=== PATIENT | male | born 1955 | race Caucasian/White ===

== ENCOUNTER 2022-01-09 01:39 | Observation (INO) | payer BC ==
[2022-01-09 02:13] LABS: Hemoglobin 12.9 g/dL (13.5-17.5); Mean Corpuscular HGB CONC 35.6 g/dL (32.0-36.0); Mean Corpuscular Volume 98.1 fl (81.2-95.1); Mean Platelet Volume 9.5 fl (7.4-10.4); Platelet Count 193 10x3/uL (150-450); RBC Distribution Width 12.3 % (11.5-14.5); Red Blood Cell (RBC) Count 3.69 10x6/uL (4.32-5.72); White Blood Cell (WBC) Count 8.4 10x3/uL (3.5-10.5)
[2022-01-09 02:27] LABS: ALT (SGPT) 97 U/L (8-55); AST (SGOT) 58 U/L (5-34); Albumin 3.9 g/dL (3.4-4.8); Alkaline Phosphatase 92 U/L (40-110); Anion Gap 11 mmol/L (10-20); BUN (Urea Nitrogen) 17 mg/dL (8.4-25.7); Bilirubin, Total 1.3 mg/dL (0.2-1.2); Calc. Creatinine Clearance 0 mL/min (70-130); Calcium 9.7 mg/dL (7.8-10.44); Carbon Dioxide 29 mmol/L (23-31); Chloride 97 mmol/L (98-107); Estimated GFR 97; Globulin 2.2 g/dL (2.4-3.5); Glucose 230 mg/dL (80-115); MDiff Complete? YES; Magnesium 1.8 mg/dL (1.6-2.6); Potassium 4.2 mmol/L (3.5-5.1); Protein, Total 6.1 g/dL (5.8-8.1); Sodium 133 mmol/L (136-145)
[2022-01-09 02:52] LABS: Band 3 % (5-11); Eosinophils 2 % (0-10); Lymphocytes 8 % (21-51); Monocytes 11 % (0-10); Neutrophil 76 % (42-75)
[2022-01-09 02:55] LABS: Platelet Morphology Comment Appears Adequate
[2022-01-09] MEDS ORDERED: Senokot S 8.6-50 MG TAB PO PRN (05:52)
[2022-01-09] MEDS ORDERED: Calcium Carbonate 500 MG ChewTAB PO PRN (05:52)
[2022-01-09] MEDS ORDERED: Zolpidem Tartrate 5 MG TAB PO PRN (05:52)
[2022-01-09] MEDS ORDERED: Ondansetron PF 4 MG/2 ML Vial IVP PRN (05:52)
[2022-01-09] MEDS ORDERED: Guaifenesin DM 100-10/5 ML UDCUP PO PRN (05:52)
[2022-01-09] MEDS ORDERED: Sodium Chloride 0.9% 1,000 ML IV SCH (06:00)
[2022-01-09] MEDS ORDERED: Magnesium Sulfate/D5W 1 GM/100 ML BAG IVPB SCH (06:15)
[2022-01-09 06:32] LABS: CK (CPK) 68 U/L (30-200); Phosphorus 3.9 mg/dL (2.3-4.7)
[2022-01-09 06:54] LABS: ALT (SGPT) 93 U/L (8-55); AST (SGOT) 64 U/L (5-34); Albumin 3.4 g/dL (3.4-4.8); Alkaline Phosphatase 71 U/L (40-110); Anion Gap 11 mmol/L (10-20); BUN (Urea Nitrogen) 18 mg/dL (8.4-25.7); Bilirubin, Total 1.3 mg/dL (0.2-1.2); Calc. Creatinine Clearance 0 mL/min (70-130); Calcium 8.6 mg/dL (7.8-10.44); Carbon Dioxide 26 mmol/L (23-31); Chloride 102 mmol/L (98-107); Estimated GFR 103; Globulin 1.9 g/dL (2.4-3.5); Glucose 102 mg/dL (80-115); Potassium 4.3 mmol/L (3.5-5.1); Protein, Total 5.3 g/dL (5.8-8.1); Sodium 135 mmol/L (136-145)
[2022-01-09 07:01] VITALS: BMI 21.7
[2022-01-09] MEDS: Thiamine 100 MG TAB PO SCH (07:59)
[2022-01-09] MEDS: Multivitamin W/ Minerals 1 TAB PO SCH (08:00)
[2022-01-09] MEDS: Folic Acid 1 MG TAB PO SCH (08:00)
[2022-01-09 11:19] LABS: Hemoglobin A1c 5.1 % (4.0-6.0)
[2022-01-09] MEDS: Acetaminophen 325 MG TAB PO PRN ×2 (11:35→17:57)
[2022-01-09 12:15] LABS: Bilirubin Neg (Negative); Blood, Urine Negative (Negative); Clarity Clear (Clear); Glucose, Urine (Dipstick) 100 mg/dL (Negative); Ketone, Urine Negative (Negative); Leukocyte Negative (Negative); Nitrite Negative (Negative); Protein, Urine (Dipstick) Negative (Neg-Trace); Urobilinogen Normal mg/dL (Less than 2)
[2022-01-09 13:01] LABS: RBC/HPF None Seen HPF (0-3); WBC/HPF 0-3 HPF (0-3)
[2022-01-09 13:02] LABS: Bacteria/HPF None Seen HPF (None Seen); Squamous Epithelial None Seen HPF (0-3)
[2022-01-09] MEDS ORDERED: Baclofen 10 MG TAB PO PRN (20:46)
[2022-01-09] MEDS ORDERED: cloNIDine 0.1 MG TAB PO PRN (20:46)
[2022-01-09] MEDS ORDERED: traZODone HCl 50 MG TAB PO SCH (21:00)
[2022-01-09] MEDS: traZODone HCl 50 MG TAB PO PRN (22:00)
[2022-01-09] MEDS: traMADol HCl 50 MG TAB PO PRN (22:01)
[2022-01-09] MEDS: Gabapentin 300 MG CAP PO PRN (22:01)
[2022-01-09] MEDS: Melatonin 3 MG TAB PO PRN (22:02)
[2022-01-09] MEDS: Mupirocin 2% Ointment 22 GM Tube TOP SCH (23:01)
[2022-01-09] MEDS: predniSONE 10 MG TAB PO SCH (23:04)
[2022-01-09] MEDS: Sodium Chloride 0.9% 1,000 ML IV SCH (23:04)
[2022-01-09] MEDS: hydrOXYzine Pamoate 25 mg Capsule PO SCH (23:07)
[2022-01-10 05:13] LABS: Hemoglobin 10.5 g/dL (13.5-17.5); Mean Corpuscular HGB CONC 34.4 g/dL (32.0-36.0); Mean Corpuscular Hemoglobin 34.5 pg (27.0-33.0); Mean Corpuscular Volume 100.3 fl (81.2-95.1); Mean Platelet Volume 9.7 fl (7.4-10.4); Platelet Count 183 10x3/uL (150-450); RBC Distribution Width 12.6 % (11.5-14.5); Red Blood Cell (RBC) Count 3.04 10x6/uL (4.32-5.72)
[2022-01-10 05:30] LABS: Anion Gap 9 mmol/L (10-20); BUN (Urea Nitrogen) 9 mg/dL (8.4-25.7); Calc. Creatinine Clearance 116 mL/min (70-130); Calcium 8.5 mg/dL (7.8-10.44); Carbon Dioxide 26 mmol/L (23-31); Chloride 106 mmol/L (98-107); Estimated GFR 109; Glucose 114 mg/dL (80-115); Potassium 3.4 mmol/L (3.5-5.1); Sodium 138 mmol/L (136-145)
[2022-01-10] MEDS: hydrOXYzine Pamoate 25 mg Capsule PO SCH ×4 (06:10→22:56)
[2022-01-10 06:19] LABS: MDiff Complete? YES; Platelet Morphology Comment Appears Adequate
[2022-01-10 06:25] LABS: Band 1 % (5-11); Lymphocytes 7 % (21-51); Monocytes 17 % (0-10); Neutrophil 72 % (42-75); Reactive Lymphocytes 2 % (0-10)
[2022-01-10] MEDS ORDERED: Potassium Chloride 20 MEQ TAB PO SCH (07:30)
[2022-01-10] MEDS: DULoxetine 30 MG CAP PO SCH (08:32)
[2022-01-10] MEDS: Gabapentin 300 MG CAP PO PRN ×2 (08:35→17:09)
[2022-01-10] MEDS: Thiamine 100 MG TAB PO SCH (08:35)
[2022-01-10] MEDS: Multivitamin W/ Minerals 1 TAB PO SCH (08:35)
[2022-01-10] MEDS: LACTINEX 1 TAB PO SCH (08:36)
[2022-01-10] MEDS: Folic Acid 1 MG TAB PO SCH (08:36)
[2022-01-10] MEDS: Tamsulosin HCl 0.4 MG CAP PO SCH (08:36)
[2022-01-10] MEDS: Acyclovir 400 mg Tablet PO SCH (08:37)
[2022-01-10] MEDS: predniSONE 10 MG TAB PO SCH ×2 (08:37→21:51)
[2022-01-10] MEDS: cloNIDine 0.1 MG TAB PO SCH ×2 (08:41→21:50)
[2022-01-10] MEDS: Mupirocin 2% Ointment 22 GM Tube TOP SCH ×2 (08:52→21:52)
[2022-01-10] MEDS: traMADol HCl 50 MG TAB PO PRN ×3 (08:52→22:11)
[2022-01-10] MEDS ORDERED: NALOXONE HCL SL SCH (09:00)
[2022-01-10] MEDS ORDERED: BUPRENORPHINE HCL SL SCH (09:00)
[2022-01-10] MEDS ORDERED: Loperamide HCl 2 MG CAP PO PRN (09:39)
[2022-01-10] MEDS ORDERED: Meclizine HCl 25 MG TAB PO SCH (09:45)
[2022-01-10] MEDS ORDERED: Loperamide HCl 2 MG CAP PO SCH (09:45)
[2022-01-10] MEDS: Sodium Chloride 0.9% 1,000 ML IV SCH (12:27)
[2022-01-10] MEDS: Acetaminophen 325 MG TAB PO PRN (12:27)
[2022-01-10] MEDS: Meclizine HCl 25 MG TAB PO SCH ×2 (15:09→21:51)
[2022-01-10 17:34] LABS: Amphetamine Not Detected (NotDetected); Barbiturates Screen Not Detected (NotDetected); Benzodiazepine Screen Not Detected (NotDetected); Cocaine Metabolite Screen Not Detected (NotDetected); Methadone Not Detected (NotDetected); Methamphetamine Not Detected (NotDetected); Opiate Screen Not Detected (NotDetected); Oxycodone Screen Not Detected (NotDetected); Phencyclidine (PCP) Not Detected (NotDetected); THC/Cannabinoid Screen Not Detected (NotDetected); Tricyclic Screen Not Detected (NotDetected)
[2022-01-10 20:45] LABS: Campy jejuni + coli by PCR Negative (Negative); STEC Shiga Toxin 1+2 Negative (Negative); Salmonella spp. by PCR Negative (Negative); Shigella spp + EIEC by PCR Negative (Negative)
[2022-01-10] MEDS: traZODone HCl 50 MG TAB PO PRN (22:11)
[2022-01-10] MEDS: Melatonin 3 MG TAB PO PRN (22:11)
[2022-01-10] MEDS ORDERED: Pramipexole Di-HCl 0.25 MG TAB PO PRN (23:46)
[2022-01-11] MEDS: Sodium Chloride 0.9% 1,000 ML IV SCH (01:57)
[2022-01-11] MEDS ORDERED: Nitroglycerin 2% Ointment 1 INCH/1 GM Packet TOP SCH (02:30)
[2022-01-11 04:46] LABS: Hemoglobin 10.3 g/dL (13.5-17.5); Mean Corpuscular HGB CONC 35.6 g/dL (32.0-36.0); Mean Corpuscular Hemoglobin 34.8 pg (27.0-33.0); Mean Corpuscular Volume 97.6 fl (81.2-95.1); Mean Platelet Volume 9.8 fl (7.4-10.4); Platelet Count 194 10x3/uL (150-450); RBC Distribution Width 12.7 % (11.5-14.5); Red Blood Cell (RBC) Count 2.96 10x6/uL (4.32-5.72); White Blood Cell (WBC) Count 6.8 10x3/uL (3.5-10.5)
[2022-01-11 04:59] LABS: Anion Gap 12 mmol/L (10-20); BUN (Urea Nitrogen) 7 mg/dL (8.4-25.7); Calc. Creatinine Clearance 114 mL/min (70-130); Calcium 8.7 mg/dL (7.8-10.44); Carbon Dioxide 24 mmol/L (23-31); Chloride 107 mmol/L (98-107); Estimated GFR 108; Glucose 122 mg/dL (80-115); Potassium 3.9 mmol/L (3.5-5.1); Sodium 139 mmol/L (136-145)
[2022-01-11 05:03] LABS: MDiff Complete? YES
[2022-01-11 05:34] LABS: Lymphocytes 11 % (21-51); Monocytes 19 % (0-10); Neutrophil 70 % (42-75)
[2022-01-11 05:41] LABS: Macrocytosis SLIGHT = 6-15 cells (100X) (0-5/hpf); Platelet Morphology Comment Appears Adequate
[2022-01-11] MEDS: hydrOXYzine Pamoate 25 mg Capsule PO SCH (06:30)
[2022-01-11] MEDS: Meclizine HCl 25 MG TAB PO SCH (06:30)
[2022-01-11 08:39] VITALS: TEMP 97.6
[2022-01-11] MEDS: traMADol HCl 50 MG TAB PO PRN (08:44)
[2022-01-11] MEDS: Tamsulosin HCl 0.4 MG CAP PO SCH (08:44)
[2022-01-11] MEDS: cloNIDine 0.1 MG TAB PO SCH (08:44)
[2022-01-11] MEDS: predniSONE 10 MG TAB PO SCH (08:44)
[2022-01-11] MEDS: Acyclovir 400 mg Tablet PO SCH (08:44)
[2022-01-11] MEDS: Multivitamin W/ Minerals 1 TAB PO SCH (08:44)
[2022-01-11] MEDS: Folic Acid 1 MG TAB PO SCH (08:44)
[2022-01-11] MEDS: DULoxetine 30 MG CAP PO SCH (08:44)
[2022-01-11] MEDS: LACTINEX 1 TAB PO SCH (08:44)
[2022-01-11] MEDS: Mupirocin 2% Ointment 22 GM Tube TOP SCH (08:45)
[2022-01-11] MEDS: Thiamine 100 MG TAB PO SCH (08:45)
[2022-01-11 08:47] VITALS: BP 134/82
== END 2022-01-11 10:30 | disposition home or self-care (01) ==
LOC: CSHERS 01:39 → CSHTELE 06:32
PROVIDERS: ADMIT Internal Medicine; ATTEND Internal Medicine
DX: H81.10 Benign paroxysmal vertigo, unspecified ear (principal); E87.6 Hypokalemia; E87.1 Hypo-osmolality and hyponatremia; F10.21 Alcohol dependence, in remission; E86.0 Dehydration; I10 Essential (primary) hypertension; E86.1 Hypovolemia; I95.89 Other hypotension; L30.9 Dermatitis, unspecified; D53.9 Nutritional anemia, unspecified; R73.9 Hyperglycemia, unspecified; I08.8 Other rheumatic multiple valve diseases; R19.7 Diarrhea, unspecified; Z79.52 Long term (current) use of systemic steroids; Z79.899 Other long term (current) drug therapy; Z88.0 Allergy status to penicillin; Z88.2 Allergy status to sulfonamides; Z20.822 Contact with and (suspected) exposure to COVID-19
CPT/HCPCS: 36415; 70450; 80048; 80053; 80306; 81001; 82533; 82550; 82607; 83036; 83735; 84100; 84484; 85025; 87324; 87449; 87505; 93005; 93306; 96360; 96361; 96374; G0378; J3475; J7050; J7512; Q0177; U0003; U0005